=== PATIENT | male | born 1985 | race Caucasian/White ===

== ENCOUNTER 2025-02-19 14:46 | Emergency (ER) | payer MEDICAID, SELFPAY ==
--- OUTSIDE RECORDS SUMMARY | 2023-11-30 06:40 | XMS_ITS ---
Author Organization [facility] Address [address] [place] [address] Care Team Providers Care Refinery Operator Helper Crude Unit Name Role Phone Grant Pollack Primary Care Provider [phone] Vonda Palafox [phone] REASON FOR VISIT CR Res 2 week follow up Encounters Encounter Location Date Provider Diagnosis [address] [address] 11/30/2023 Vonda Palafox Plan Of Treatment No Information Progress Notes * Vladislav ARELLANO MDOB:[birth year] (39 yo M)Acc No.[id number]:11/30/2023 UNLOCKED PROGRESS NOTE Patient: Vladislav MOLINA Provider: Fady Palafox DNP, APRN, PMHNP-BC :1985 A ge:37 Y S ex:Male Date:11/30/2023 Address:[address] [place], [place] [id number] Pcp:Grant Pollack Subjective: * Chief Complaints: * 1 . CR Res 2 week follow up. * Medical History: Objective: * Vitals: Assessment: Plan: * Treatment: * * Electronic signature of Melly Crowe , [id number] on 02/19/2025 at 05:44 PM CDT Sign off status: Pending * Provider: Fady Palafox DNP, APRN, PMHNP-BC Date: 0 11/30/2023 Generated for Printing/Faxing/eTransmitting on: 0 02/19/2025 05:44 PM CDT
[2025-02-19 14:52] VITALS: BP 129/84; PULSE 87; RESP 20; TEMP 37; O2SAT 98
--- NOTE | 2025-02-19 15:11 | ED.URI ---
HPI - URI/Sore Throat General Chief Complaint: Upper Respiratory Infection Stated Complaint: sinus infection Time Seen by Provider: 02/19/25 15:12 Source: patient and RN notes reviewed Mode of arrival: ambulatory Limitations: no limitations History of Present Illness HPI Narrative: 39-year-old male presented for complaint of nasal congestion and sinus pressure for almost 4 weeks. Cough is worse at night and in the morning. Has been taking Sudafed and Mucinex with temporary improvement. Denies shortness of breath, wheezing, nausea vomiting diarrhea, fevers or lethargy. MD elicited complaint: cough Related Data Allergies Allergy/AdvReac Type Severity Reaction Status Date / Time No Known Allergies Allergy Verified 02/19/25 14:57 Review of Systems Review of Systems: CONSTITUTIONAL: denies malaise, body aches, chills, sweats, fever EYES: Denies visual changes, redness, or discharge ENT: Reports rhinorrhea, congestion, sinus pain, Denies otalgia, sore throat CARDIOVASCULAR: Denies chest pain, palpitations, edema RESPIRATORY: Reports cough, post nasal drainage. Denies dyspnea GASTROINTESTINAL: Denies abdominal pain, nausea, vomiting, diarrhea SKIN: Denies rash or itching NEUROLOGIC: Denies headache Exam Narrative: GENERAL: mildly Ill-appearing EYES: conjunctivae clear ENT: Mucous membranes moist. TM pearly goode with dull light reflex bilaterally; no tragal tenderness. Oropharynx erythematous without lesions or exudate, no drooling, no hoarseness, no trismus, uvula midline. No tripod positioning, muffled voice, soft palate or pharyngeal wall bulging NECK: Supple. No lymphadenopathy CHEST: Clear to auscultation, breath sounds equal. No wheezing, rhonchi, rales, or stridor. No respiratory distress, speaks in full sentences. HEART: Regular rate and rhythm. SKIN: Warm, dry, no rash. NEURO: Alert and oriented x3. PSYCH: Normal mood and affect Course Course Emergency Course: Patient is aware of diagnosis, understands and agrees to treatment plan. Anticipatory guidance given. Patient agrees to follow-up as directed and is aware of reasons to seek care at the emergency department. Portions of this record may have been created with voice recognition software Level of Care: Express Care Visit Vital Signs Vital signs: Vital Signs Temperature 98.6 F 02/19/25 14:52 Pulse Rate 87 02/19/25 14:52 Respiratory Rate 02/19/25 14:52 Blood Pressure 129/84 02/19/25 14:52 Pulse Oximetry 98 02/19/25 14:52 Oxygen Delivery Room Air 02/19/25 14:52 Temperature 98.6 F 02/19/25 14:52 Pulse Rate 87 02/19/25 14:52 Respiratory Rate 20 02/19/25 14:52 Blood Pressure 129/84 02/19/25 14:52 Pulse Oximetry 98 02/19/25 14:52 Oxygen Delivery Room Air 02/19/25 14:52 reviewed MDM - URI/Sore Throat MDM Narrative Medical decision making narrative: Discussed physical exam findings c/w sinusitis. Reviewed RX. Advised supportive measures and signs/symptoms to go to the ER. Pt is appropriate for outpt treatment and f/u. Differential Diagnosis Differential diagnosis: Likely upper respiratory infection, sinusitis and viral infection Discharge Plan Discharge Clinical Impression: Sinusitis Patient Disposition: Home Condition: Stable Instructions: Antibiotic Form, Rhinosinusitis (ED) Additional Instructions: Take antibiotic as directed Recommendations: Flonase spray and Zyrtec (or Claritin/Karla) over the counter Cough syrup may cause drowsiness; avoid driving or take it at night time. Tylenol 1000mg every 8 hours as needed for pain Symptomatic treatment includes: rest, fluids, and increase humidity of the air at home. Follow up with your primary care provider in 1 week. Go to the ER for worsening symptoms or concerns. Patient Language: Turkish Prescriptions: New prednisone 20 mg tablet 40 mg PO DAILY 4 Days Qty: 8 0RF amoxicillin-pot clavulanate 875-125 mg tablet 1 tablet PO Q12H 7 Days Qty: 14 0RF Follow-up/Referrals: PHYSICIAN,SOFTWARE DEVELOPMENT PROJECT MANAGER [Primary Care Provider, Internal Medicine] Time of Disposition: 15:17
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
== END 2025-02-19 15:20 | disposition home or self-care (01) ==
PROVIDERS: Emergency Provider Nurse Practitioner Family
DX: J32.9 Chronic sinusitis, unspecified (principal)
CPT/HCPCS: 99203; G0463